=== PATIENT | male | born 1955 | race Caucasian/White ===

== ENCOUNTER 2017-08-12 08:57 | Emergency (ER) | payer BC, OTHER ==
[~2017-08-12] VITALS: Ht 175.3 cm; Wt 62.6 kg
[~2017-08-12 08:57] MED LIST: AZITTAB PO; OMEP20TA PO
[2017-08-12 08:59] VITALS: Ht 175.3 cm; Wt 62.6 kg
[2017-08-12 09:02] VITALS: O2SAT 98
[2017-08-12] MEDS ORDERED: OPTIRAY 320 IV PRN (09:30)
[2017-08-12] MEDS ORDERED: ASPI-435 PO (09:33)
[2017-08-12] MEDS ORDERED: PRLSR20 PO (09:33)
[2017-08-12 09:35] LABS: BASO % 0.5 %; BASO ABS # 0.03 K/uL (0-0.2); EOS % 1.7 %; EOS ABS # 0.11 K/uL (0-0.5); HEMATOCRIT 44.6 % (42-52); HEMOGLOBIN 15.6 g/dL (14.0-18.0); IG# 0.02 K/uL (0.00-0.02); LYMPH % 32.5 %; LYMPH ABS # 2.05 K/uL (1.2-3.4); MEAN CELL VOLUME 93.9 fL (80-100); MEAN CORPUSCULAR HEMOGLOBIN 32.8 pg (25-34); MEAN PLATELET VOLUME 9.5 fL (7.4-10.4); MONO % 6.8 %; MONO ABS # 0.43 K/uL (0.11-0.59); NEUT % 58.2 %; NEUT ABS # 3.67 K/uL (1.4-6.5); PLATELET COUNT 326 K/uL (130-400); RED CELL DISTRIBUTION WIDTH CV 12.7 % (11.5-14.5); RED CELL DISTRIBUTION WIDTH SD 43.3 fL (36.4-46.3); WHITE BLOOD COUNT 6.31 K/uL (4.8-10.8)
--- NOTE | 2017-08-12 09:38 | DIAGNOSTIC IMAGING REPORT ---
CHEST ONE VIEW PORTABLE CLINICAL HISTORY: 62 years-old Male presenting with Evaluate Fever/Sepsis. TECHNIQUE: Portable upright AP view of the chest was obtained. COMPARISON: 12/16/2015. FINDINGS: Atherosclerosis of the aortic arch. Cardiac silhouette normal in size. Lungs and pleural spaces clear. Degenerative changes of the thoracic spine. Upper abdomen normal. IMPRESSION: 1. No acute cardiopulmonary disease. Electronically signed by: Hiren Solis M.D. 08/12/2017 9:37 AM Dictated Date/Time: 08/12/2017 9:37 AM
[2017-08-12 09:40] LABS: PTT PATIENT 25.7 SECONDS (21.0-31.0)
[2017-08-12 09:51] LABS: ALKALINE PHOSPHATASE 93 U/L (45-117); AST/SGOT 20 U/L (15-37); BLOOD UREA NITROGEN 12 mg/dl (7-18); CALCIUM 9.1 mg/dl (8.5-10.1); CARBON DIOXIDE 29 mmol/L (21-32); CKMB 1.2 ng/ml (0.5-3.6); CREATININE 0.96 mg/dl (0.60-1.40); GLUCOSE 125 mg/dl (70-99); LIPASE 310 U/L (73-393); POTASSIUM 3.9 mmol/L (3.5-5.1); SODIUM 139 mmol/L (136-145)
[2017-08-12 09:54] LABS: ALBUMIN 3.8 gm/dl (3.4-5.0); ALT/SGPT 28 U/L (12-78); TOTAL PROTEIN 7.6 gm/dl (6.4-8.2)
--- NOTE | 2017-08-12 11:58 | DIAGNOSTIC IMAGING REPORT ---
ABD/PELVIS IV AND ORAL CONT CLINICAL HISTORY: 62 years-old Male presenting with lower abd pain. TECHNIQUE: Multidetector CT of the abdomen and pelvis was performed after the administration of oral and intravenous contrast. IV contrast: 93 mL of Optiray 320. A dose lowering technique was used consistent with the principles of ALARA (as low as reasonably achievable). COMPARISON: None. CT DOSE (mGy.cm): The estimated cumulative dose is 450.55 mGycm. FINDINGS: Orthopedic Technician topogram: Unremarkable. Lung bases: Lungs and pleural spaces clear. Normal heart size. No pericardial or pleural effusion. Liver: Normal morphology. No liver lesion. Patent hepatic vasculature. Biliary: No intrahepatic or extrahepatic biliary ductal dilatation. Normal gallbladder. Pancreas: Normal. Spleen: Normal. Adrenal glands: Normal. Kidneys and ureters: Normal parenchyma. No nephrolithiasis. No hydronephrosis. Subtle mild bilateral urothelial thickening of the ureters. Bladder: Mild circumferential bladder wall thickening. No perivesicular inflammatory change. Pelvic organs: Prostate enlargement likely secondary to benign prostatic hyperplasia. Bowel: Wall thickening of the mid sigmoid colon with limited diverticulosis. Regional prominence of the vasa recta noted. No significant pericolonic inflammatory change. The appendix is normal. No bowel obstruction. Peritoneal cavity: No free fluid or intraperitoneal gas. Lymph nodes: No enlarged lymph nodes in the abdomen or pelvis. Vasculature: Atherosclerosis of the normal caliber abdominal aorta. IVC patent. Abdominal wall: Normal. Musculoskeletal: Degenerative changes of the spine. IMPRESSION: 1. Focal wall thickening of the mid sigmoid colon in the region of Limited diverticulosis. In the absence of pericolonic inflammatory change, this could suggest circular muscle hypertrophy/chronic diverticular disease. However, direct visualization recommended to exclude the potential of underlying neoplasm. 2. Mild circumferential bladder wall thickening likely indicates chronic outlet obstruction in the setting of prostatomegaly. Subtle urothelial thickening and ureters may suggest chronic reflux. Electronically signed by: Hiren Solis M.D. 08/12/2017 11:57 AM Dictated Date/Time: 08/12/2017 11:53 AM
--- NOTE | 2017-08-12 12:47 | EMERGENCY ROOM VISIT NOTE ---
History Report prepared by Jesusita: Masha Leiva Under the Supervision of: Dr. Kristian Bonner D.O. First contact with patient: 09:08 Chief Complaint: CHEST PAIN Stated Complaint: CHEST PAIN AND ABDOMINAL PAIN History of Present Illness The patient is a 62 year old male who presents to the Emergency Room with complaints of intermittent mid chest pain starting 1 month ago. The pain seems to be worse in the morning. He has had associated SOB. He has never experienced this before. This morning, he had 2 good bowel movements. Then he started having intermittent severe lower abdominal cramping. He has had the pain every 5 -10 minutes for the past 2 hours. He has been unable to have a bowel movement since the pain started. He reports the pain is similar to when he had colitis in his 20s. He is not having any chest pain today. He denies any diarrhea. His mother after a heart attack in her early 70s. He denies any history of hypertension or high cholesterol. He does not smoke. He notes that he had bronchitis 6 weeks ago. He is on omeprazole for indigestion. Source of History: patient Onset: 1 month ago Position: chest Timing: intermittent Modifying Factors (Worsening): other (morning) Associated Symptoms: + SOB, + abdominal pain, No diarrhea Review of Systems See HPI for pertinent positives & negatives. A total of 10 systems reviewed and were otherwise negative. Past Medical & Surgical Medical Problems: (1) Bronchitis Family History Heart disease Social History Smoking Status: Never Smoker Drug Use: none Marital Status: Housing Status: lives with family Occupation Status: retired Current/Historical Medications Scheduled Aspirin (Aspirin 81), 81 MG PO DAILY Omeprazole (Prilosec), 20 MG PO DAILY Allergies Coded Allergies: Latex (Verified Allergy, Intermediate, "RASH" AFTER WEARING LATEX GLOVES, 08/12/17) Physical Exam Vital Signs Date Time Temp Pulse Resp B/P (MAP) Pulse Ox O2 Delivery O2 Flow Rate FiO2 08/12/17 13:23 36.7 61 17 147/93 96 08/12/17 12:38 61 147/93 96 08/12/17 10:32 64 17 96 08/12/17 10:30 134/82 08/12/17 10:27 64 17 97 08/12/17 10:22 74 18 95 08/12/17 10:17 64 17 95 08/12/17 10:12 61 16 95 08/12/17 10:07 63 17 96 08/12/17 10:02 66 17 95 08/12/17 10:00 134/85 08/12/17 09:57 71 20 97 08/12/17 09:52 62 19 98 08/12/17 09:47 70 17 97 08/12/17 09:42 68 18 97 08/12/17 09:37 73 28 98 08/12/17 09:32 73 16 96 08/12/17 09:30 136/87 08/12/17 09:27 81 22 96 08/12/17 09:22 76 20 96 08/12/17 09:17 82 21 156/93 97 08/12/17 09:12 76 19 96 08/12/17 09:08 78 08/12/17 09:07 78 19 97 08/12/17 09:03 80 16 176/100 98 Room Air 08/12/17 09:02 98 Room Air 08/12/17 09:02 176/100 08/12/17 08:59 36.7 80 20 183/104 96 Room Air Physical Exam CONSTITUTIONAL/VITAL SIGNS: Reviewed / noted above. GENERAL: Non-toxic in appearance. INTEGUMENTARY: Warm, dry, and [place]. HEAD: Normocephalic. EYES: without scleral icterus or trauma. ENT/OROPHARYNX: clear and moist. LYMPHADENOPATHY/NECK: Is supple without lymphadenopathy or meningismus. RESPIRATORY: Lungs clear and equal. CARDIOVASCULAR: Regular rate and rhythm. GI/ABDOMEN: Soft and nontender. No organomegaly or pulsatile mass. No rebound or guarding. Normal bowel sounds. EXTREMITIES: Warm and well perfused. BACK: No CVA tenderness. NEUROLOGICAL: Intact without focal deficits. PSYCHIATRIC: normal affect. MUSCULOSKELETAL: Normally developed with good muscle tone. Medical Decision & Procedures ER Provider Diagnostic Interpretation: X ray results and stated below per my interpretation and radiology interpretation. Radiology results as stated below per my review and radiologist interpretation: CHEST ONE VIEW PORTABLE CLINICAL HISTORY: 62 years-old Male presenting with Evaluate Fever/Sepsis. TECHNIQUE: Portable upright AP view of the chest was obtained. COMPARISON: 12/16/2015. FINDINGS: Atherosclerosis of the aortic arch. Cardiac silhouette normal in size. Lungs and pleural spaces clear. Degenerative changes of the thoracic spine. Upper abdomen normal. IMPRESSION: 1. No acute cardiopulmonary disease. Electronically signed by: Hiren Solis M.D. 08/12/2017 9:37 AM Dictated Date/Time: 08/12/2017 9:37 AM ABD/PELVIS IV AND ORAL CONT CLINICAL HISTORY: 62 years-old Male presenting with lower abd pain. TECHNIQUE: Multidetector CT of the abdomen and pelvis was performed after the administration of oral and intravenous contrast. IV contrast: 93 mL of Optiray 320. A dose lowering technique was used consistent with the principles of ALARA (as low as reasonably achievable). COMPARISON: None. CT DOSE (mGy.cm): The estimated cumulative dose is 450.55 mGycm. FINDINGS: Shirt Ironer Supervisor topogram: Unremarkable. Lung bases: Lungs and pleural spaces clear. Normal heart size. No pericardial or pleural effusion. Liver: Normal morphology. No liver lesion. Patent hepatic vasculature. Biliary: No intrahepatic or extrahepatic biliary ductal dilatation. Normal gallbladder. Pancreas: Normal. Spleen: Normal. Adrenal glands: Normal. Kidneys and ureters: Normal parenchyma. No nephrolithiasis. No hydronephrosis. Subtle mild bilateral urothelial thickening of the ureters. Bladder: Mild circumferential bladder wall thickening. No perivesicular inflammatory change. Pelvic organs: Prostate enlargement likely secondary to benign prostatic hyperplasia. Bowel: Wall thickening of the mid sigmoid colon with limited diverticulosis. Regional prominence of the vasa recta noted. No significant pericolonic inflammatory change. The appendix is normal. No bowel obstruction. Peritoneal cavity: No free fluid or intraperitoneal gas. Lymph nodes: No enlarged lymph nodes in the abdomen or pelvis. Vasculature: Atherosclerosis of the normal caliber abdominal aorta. IVC patent. Abdominal wall: Normal. Musculoskeletal: Degenerative changes of the spine. IMPRESSION: 1. Focal wall thickening of the mid sigmoid colon in the region of Limited diverticulosis. In the absence of pericolonic inflammatory change, this could suggest circular muscle hypertrophy/chronic diverticular disease. However, direct visualization recommended to exclude the potential of underlying neoplasm. 2. Mild circumferential bladder wall thickening likely indicates chronic outlet obstruction in the setting of prostatomegaly. Subtle urothelial thickening and ureters may suggest chronic reflux. Electronically signed by: Hiren Solis M.D. 08/12/2017 11:57 AM Dictated Date/Time: 08/12/2017 11:53 AM Laboratory Results 08/12/17 09:05 Red Blood Count 4.75, Mean Corpuscular Volume 93.9, Mean Corpuscular Hemoglobin 32.8, Mean Corpuscular Hemoglobin Concent 35.0, Mean Platelet Volume 9.5, Neutrophils (%) (Auto) 58.2, Lymphocytes (%) (Auto) 32.5, Monocytes (%) (Auto) 6.8, Eosinophils (%) (Auto) 1.7, Basophils (%) (Auto) 0.5, Neutrophils # (Auto) 3.67, Lymphocytes # (Auto) 2.05, Monocytes # (Auto) 0.43, Eosinophils # (Auto) 0.11, Basophils # (Auto) 0.03 08/12/17 09:05 Test 08/12/17 09:05 White Blood Count 6.31 K/uL (4.8-10.8) Red Blood Count 4.75 M/uL (4.7-6.1) Hemoglobin 15.6 g/dL (14.0-18.0) Hematocrit 44.6 % (42-52) Mean Corpuscular Volume 93.9 fL (80-100) Mean Corpuscular Hemoglobin 32.8 pg (25-34) Mean Corpuscular Hemoglobin Concent 35.0 g/dl (32-36) Platelet Count 326 K/uL (130-400) Mean Platelet Volume 9.5 fL (7.4-10.4) Neutrophils (%) (Auto) 58.2 % Lymphocytes (%) (Auto) 32.5 % Monocytes (%) (Auto) 6.8 % Eosinophils (%) (Auto) 1.7 % Basophils (%) (Auto) 0.5 % Neutrophils # (Auto) 3.67 K/uL (1.4-6.5) Lymphocytes # (Auto) 2.05 K/uL (1.2-3.4) Monocytes # (Auto) 0.43 K/uL (0.11-0.59) Eosinophils # (Auto) 0.11 K/uL (0-0.5) Basophils # (Auto) 0.03 K/uL (0-0.2) RDW Standard Deviation 43.3 fL (36.4-46.3) RDW Coefficient of Variation 12.7 % (11.5-14.5) Immature Granulocyte % (Auto) 0.3 % Immature Granulocyte # (Auto) 0.02 K/uL (0.00-0.02) Prothrombin Time 10.2 SECONDS (9.0-12.0) Prothromb Time International Ratio 1.0 (0.9-1.1) Activated Partial Thromboplast Time 25.7 SECONDS (21.0-31.0) Partial Thromboplastin Ratio 1.0 Anion Gap 4.0 mmol/L (3-11) Est Creatinine Clear Calc Drug Dose 69.7 ml/min Estimated GFR () 97.1 Estimated GFR (Non- 83.8 BUN/Creatinine Ratio 13.0 (10-20) Calcium Level 9.1 mg/dl (8.5-10.1) Total Bilirubin 0.5 mg/dl (0.2-1) Direct Bilirubin 0.1 mg/dl (0-0.2) Aspartate Amino Transf (AST/SGOT) 20 U/L (15-37) Alanine Aminotransferase (ALT/SGPT) 28 U/L (12-78) Alkaline Phosphatase 93 U/L (45-117) Total Creatine Kinase 136 U/L (39-308) Creatine Kinase MB 1.2 ng/ml (0.5-3.6) Creatine Kinase MB Ratio 0.9 (0-3.0) Troponin I < 0.015 ng/ml (0-0.045) Total Protein 7.6 gm/dl (6.4-8.2) Albumin 3.8 gm/dl (3.4-5.0) Lipase 310 U/L (73-393) Laboratory results as stated above per my review. ECG Per My Interpretation Indication: chest pain Rate (beats per minute): 85 Rhythm: sinus rhythm Findings: PVC, other (no ST elevation) ED Course 0918: Previous medical records were reviewed. The patient was evaluated in room A2. A complete history and physical examination was performed. 1248: On reevaluation, the patient is resting comfortably. I discussed the results and findings with the patient. He verbalized agreement of the treatment plan. He was discharged home. Medical Decision Differentials considered include acute myocardial infarction, acute coronary syndrome, myocarditis, pericarditis, pericardial effusions /tamponade, esophageal perforation, thoracic aortic dissection, pulmonary embolism, pneumonia, pneumothorax, shingles, acute cholecystitis, perforated abdominal viscus, pancreatitis, hepatitis, AAA, UTI, pyelonephritis, kidney stones, appendicitis, diverticulitis, shingles, bowel obstruction mesenteric ischemia, intussusception, hernia, testicular torsion. This is a 62-year-old male who presents to the ED with a chief complaint of chest discomfort as well as lower abdominal pain. The patient states that he has had some retrosternal chest pain associated with some shortness of breath over the past month. It seems to be if he is doing something strenuous. The patient also reports today around 5:30 AM he developed some lower abdominal discomfort after having 2 bowel movements this morning. He describes it as a spasm type of sensation in his lower abdomen. This is the main reason for his visit. The patient states that his blood pressures have typically been good and his cholesterol is good on his last evaluation. He denies any vomiting or nausea. No urinary symptoms. The patient's exam was unremarkable. His initial blood pressure was elevated at 183/104. His CBC and complete metabolic panel are normal, troponin was negative, chest x-ray was negative for acute disease. CT scan of the abdomen pelvis was performed. 1. Focal wall thickening of the mid sigmoid colon in the region of Limited diverticulosis. In the absence of pericolonic inflammatory change, this could suggest circular muscle hypertrophy/chronic diverticular disease. However, direct visualization recommended to exclude the potential of underlying neoplasm. The patient was told the results of the test. I did recommend follow -up with PCP for further evaluation for his chest discomfort and follow-up with GI for his abnormal CT scan findings. He did not require any medication during his stay. Medication Reconcilliation Current Medication List: was personally reviewed by me Blood Pressure Screening Patient's blood pressure: Elevated blood pressure Blood pressure disposition: Referred to PCP Impression Primary Impression: Lower abdominal pain Additional Impression: Precordial chest pain Scribe Attestation The scribe's documentation has been prepared under my direction and personally reviewed by me in its entirety. I confirm that the note above accurately reflects all work, treatment, procedures, and medical decision making performed by me. Departure Information Dispostion Home / Self-Care Referrals Killian Moore M.D. (PCP) Patient Instructions My [facility] Additional Instructions Your CT scan of the abdomen reveals focal wall thickening of the mid sigmoid colon in the region of Limited diverticulosis. In the absence of pericolonic inflammatory change, this could suggest circular muscle hypertrophy/chronic diverticular disease. However, direct visualization recommended to exclude the potential of underlying neoplasm. The test for your heart did not show any abnormalities. Follow up with a GI specialist for the above CT scan findings and follow-up with your family doctor for further evaluation of your chest pain. Follow-up with your doctor for further care and evaluation in 1-3 days. Return to the emergency department for worsening or new symptoms or any concerns. You have been examined and treated today on an emergency basis only. This is not a substitute for, or an effort to provide, complete comprehensive medical care. It is impossible to recognize and treat all injuries or illnesses in a single emergency department visit. It is therefore important that you follow up closely with your doctor. Call as soon as possible for an appointment. Problem Qualifiers
[2017-08-12 13:23] VITALS: BP 147/93; PULSE 61; TEMP 36.7; O2SAT 96
== END 2017-08-12 13:26 | disposition home or self-care (01) ==
LOC: C.EDB 08:59 → C.EDA 13:26
DX: R10.30 Lower abdominal pain, unspecified (principal); R07.2 Precordial pain; Z87.09 Personal history of other diseases of the respiratory system; Z82.49 Family history of ischemic heart disease and other diseases of the circulatory system; Z79.82 Long term (current) use of aspirin; Z91.040 Latex allergy status; R06.02 Shortness of breath